=== PATIENT | male | born 1970 | race Caucasian/White ===

== ENCOUNTER 2018-11-25 16:38 | Emergency (ER) | payer BC ==
[~2018-11-25] VITALS: Wt 61.0 kg
[2018-11-25 16:41] VITALS: BP 116/66; PULSE 92; RESP 18
[2018-11-25] MEDS ORDERED: KETOROLAC 30 MG INJ IM STA (18:57)
[2018-11-25] MEDS ORDERED: ONDANSETRON (ODT) 4 MG TAB ODT STA (18:57)
[2018-11-25] MEDS ORDERED: ACET500C5 PO (19:01)
[2018-11-25] MEDS ORDERED: ONDA8TAB14 PO (19:01)
[2018-11-25] MEDS ORDERED: BISM262O23 PO (19:01)
--- NOTE | 2018-11-25 19:02 | ERD ---
ER Documentation Chief Complaint Chief Complaint VOMITING AND DIARRHEA TODAY HPI This 48-year-old male presents 1 day history of body aches, vomiting diarrhea, nonbilious nonbloody. There is no blood. Denies fevers. There is other household members with similar symptoms. He has a history of appendectomy otherwise no significant abdominal pain. ROS All systems reviewed and are negative except as per history of present illness. Medications Home Meds Active Scripts Acetaminophen* (Tylophen*) 500 Mg Capsule, 1 CAP PO Q6H PRN for PAIN AND OR ELEVATED TEMP, #20 CAP Prov:KEVIN STRICKLAND MD 11/25/18 Ondansetron (Ondansetron Odt) 8 Mg Tab.rapdis, 8 MG PO Q6H PRN for NAUSEA AND/OR VOMITING, #10 TAB Prov:KEVIN STRICKLAND MD 11/25/18 Bismuth Subsalicylate* (Pepto-Bismol*) 262 Mg/15 Ml Oral.susp, 15 ML PO Q3H PRN for DIARRHEA for 4 Days, ML Prov:KEVIN STRICKLAND MD 11/25/18 Allergies Allergies: Coded Allergies: No Known Drug Allergies (Verified Allergy, Unknown, 11/25/18) PMhx/Soc Medical and Surgical Hx: pt denies Medical Hx, pt denies Surgical Hx Hx Alcohol Use: No Hx Substance Use: No Hx Tobacco Use: No Smoking Status: Never smoker FmHx Family History: No diabetes, No coronary disease, No other Physical Exam Vitals Vital Signs Date Temp Pulse Resp B/P (MAP) Pulse Ox O2 O2 Flow FiO2 Time Delivery Rate 11/25/18 98.1 92 18 116/66 99 16:41 (83) Physical Exam Const: No acute distress Head: Atraumatic Eyes: Normal Conjunctiva ENT: Normal External Ears, Nose and Mouth. Neck: Full range of motion. No meningismus. Resp: Clear to auscultation bilaterally Cardio: Regular rate and rhythm, no murmurs Abd: Soft, non tender, non distended. Normal bowel sounds Skin: No petechiae or rashes Back: No midline or flank tenderness Ext: No cyanosis, or edema Neur: Awake and alert Psych: Normal Mood and Affect Results 24 hrs Current Medications Medications Dose Sig/Constanza Start Time Status Last (Trade) Ordered Route PRN Stop Time Admin Dose Reason Admin Ondansetron 8 mg ONCE STAT 11/25/18 DC HCl (Zofran ODT 18:57 Odt) 11/25/18 18:58 Ketorolac 30 mg ONCE STAT 11/25/18 DC Tromethamine IM 18:57 (Toradol) 11/25/18 18:58 Procedures/MDM Patient presents with vomiting diarrhea for one days duration with body aches. He is well-appearing. Likely has a viral syndrome. There is no signs of acute abdomen, obstruction, hypoxemia, rest or distress. He was given Toradol, Zofran, treated with Pepto-Bismol, Zofran, medication for fever and body aches at home. The patient was stable with no new complaints during the ER course. Clinically, there is no current evidence to suggest meningitis, sepsis, acute abdomen, pneumonia, stroke, acute coronary syndrome, pulmonary embolism, aortic dissection or any other emergent condition appearing to require further evaluation or hospitalization. Patient counseled regarding my diagnostic impression and care plan. Prior to discharge all questions answered. Pt agrees with treatment plan and understands strict return precautions. Pt is instructed to follow up with primary care provider within 24-48 hours. Precautionary instructions provided including instructions to return to the ER if not improving or for any worsening or changing symptoms or concerns. Departure Diagnosis: Primary Impression: Vomiting and diarrhea Condition: Stable Patient Instructions: Vomiting And Diarrhea, Nonspecific (Adult) Additional Instructions: Probablamente un virus que dura 2-4 arias. cheque otro vez en el proximo zeina para mas simptomas- vomito, dolor, carmencita, problemas con respirando, o con garrett doctor primario. KEVIN STRICKLAND MD Nov 25, 2018 19:02
== END 2018-11-25 19:10 | disposition home or self-care (01) ==
LOC: FTE 16:38
DX: R11.10 Vomiting, unspecified (principal); R19.7 Diarrhea, unspecified
CPT/HCPCS: 96372; 99284; J1885; Z7610